=== PATIENT | female | born 1930 | race Caucasian/White ===

== ENCOUNTER 2016-10-28 11:06 | Inpatient (IN) | payer MEDICARE ==
[~2016-10-28] VITALS: Ht 174 cm; Wt 71.0 kg
[~2016-10-28 11:06] MED LIST: CITA10TA8 PO; CITA40TA12 PO; CLON0.1T PO; DILT120C PO; DILT30TA33 PO; HYDR12.53 PO; HYDR25TA6 PO; LOVA40TA2 PO; OXYC-302 PO; PRAV20TA2 PO; PRAV40TA2 PO
[2016-10-28] MEDS ORDERED: DILTIAZEM 125 MG in DEXTROSE 5% 100 ML IV SCH (11:27)
[2016-10-28] MEDS ORDERED: LOSA50TA6 PO (11:27)
[2016-10-28] MEDS ORDERED: CITA20TA9 PO (11:27)
[2016-10-28] MEDS ORDERED: SODIUM CHLORIDE 0.9% 1,000 ML IV ONE (11:27)
[2016-10-28] MEDS ORDERED: MAGNESIUM SULFATE 1 GM in SODIUM CHLORIDE 0.9% 50 ML IVPB ONE (11:30)
[2016-10-28] MEDS ORDERED: DILTIAZEM 5 MG/ML, 5ML IV ONE (11:30)
[2016-10-28] MEDS ORDERED: SODIUM CHLORIDE 0.9% 1,000ML IVBOLUS ONE (11:30)
[2016-10-28] MEDS ORDERED: ASPIRIN 81 MG TABLET CHEW PO ONE (11:30)
[2016-10-28] MEDS ORDERED: ASPIRIN 81 MG TABLET CHEW ONE (11:41)
[2016-10-28] MEDS ORDERED: DILTIAZEM 5 MG/ML, 5ML ONE (11:41)
[2016-10-28 11:54] LABS: HEMATOCRIT 42.9 % (34.6-47.8); HEMOGLOBIN 14.4 g/dL (11.7-16.4); WHITE BLOOD COUNT 6.2 x10^3/uL (3.4-10)
[2016-10-28 12:03] LABS: ASPARTATE AMINO TRANSFERASE 23 U/L (15-37); BLOOD UREA NITROGEN 15 mg/dL (7-18)
[2016-10-28 12:10] LABS: IS PT STATUS REG ER OR PRE ER? YES
[2016-10-28] MEDS ORDERED: POTASSIUM CHLORIDE 20 MEQ TAB.ER.PRT PO ONE (14:30)
[2016-10-28] MEDS ORDERED: ONDANSETRON 2MG/ML, 2ML IVPush PRN (14:30)
[2016-10-28] MEDS ORDERED: ONDANSETRON ODT 4 MG PO PRN (14:30)
[2016-10-28] MEDS ORDERED: ACETAMINOPHEN 325 MG TABLET PO PRN (14:30)
[2016-10-28] MEDS ORDERED: DOCUSATE 100 MG CAPSULE PO PRN (14:30)
[2016-10-28] MEDS ORDERED: BISACODYL 10 MG SUPP PR PRN (14:30)
[2016-10-28 14:36] VITALS: BP 115/80
[2016-10-28] MEDS ORDERED: HEPARIN 5,000 UNITS/ML, 1ML IV PRN (15:00)
[2016-10-28] MEDS ORDERED: HEPARIN 5,000 UNITS/ML, 1ML IV ONE (15:00)
[2016-10-28] MEDS ORDERED: HEPARIN 25,000 UNITS/500ML PMX 500 ML IV PRN (15:00)
[2016-10-28] MEDS ORDERED: DILTIAZEM 125 MG in SODIUM CHLORIDE 0.9% 100 ML IV SCH (15:30)
[2016-10-28 18:10] LABS: IS PT STATUS REG ER OR PRE ER? YES
[2016-10-28 18:41] VITALS: BP 112/76
[2016-10-28] MEDS: METOPROLOL TARTRATE 25 MG TABLET PO SCH (18:43)
[2016-10-28 21:30] VITALS: BP 86/56
[2016-10-29 00:37] VITALS: BP 120/75
[2016-10-29 00:51] LABS: IS PT STATUS REG ER OR PRE ER? NO
[2016-10-29] MEDS: METOPROLOL TARTRATE 25 MG TABLET PO SCH ×2 (05:47→16:58)
[2016-10-29] MEDS: ASPIRIN 81 MG TABLET EC PO SCH (05:47)
[2016-10-29 06:28] LABS: BLOOD UREA NITROGEN 15 mg/dL (7-18)
[2016-10-29 07:56] VITALS: BP 117/76
[2016-10-29] MEDS: CITALOPRAM 20 MG TABLET PO SCH (08:44)
[2016-10-29 13:00] VITALS: BP 168/91
[2016-10-29] MEDS ORDERED: FENTANYL PF 100 MCG/2ML ONE (14:05)
[2016-10-29] MEDS ORDERED: LIDOCAINE 2%, 20ML ONE (14:05)
[2016-10-29] MEDS ORDERED: MIDAZOLAM 1 MG/ML, 5ML ONE (14:05)
[2016-10-29] MEDS ORDERED: VANCOMYCIN PMX 1GM/200ML 200 ML ONE (14:05)
[2016-10-29] MEDS ORDERED: VANCOMYCIN 500 MG ONE (14:05)
[2016-10-29] MEDS ORDERED: HYDROcodone/APAP 5/325 TABLET PO PRN (15:30)
[2016-10-29] MEDS ORDERED: DILTIAZEM 125 MG in SODIUM CHLORIDE 0.9% 100 ML IV SCH (15:30)
[2016-10-29 19:41] VITALS: BP 115/77
[2016-10-29] MEDS: SODIUM CHLORIDE FLUSH 10ML SYR IVF SCH (20:49)
[2016-10-30 02:56] VITALS: BP 146/88
[2016-10-30] MEDS: ASPIRIN 81 MG TABLET EC PO SCH (05:37)
[2016-10-30] MEDS: METOPROLOL TARTRATE 25 MG TABLET PO SCH ×2 (05:37→16:30)
[2016-10-30 06:30] VITALS: BP 143/82
[2016-10-30] MEDS: CITALOPRAM 20 MG TABLET PO SCH (07:50)
[2016-10-30] MEDS: SODIUM CHLORIDE FLUSH 10ML SYR IVF SCH ×2 (07:53→19:24)
[2016-10-30 15:26] VITALS: BP 162/85
[2016-10-30 19:12] VITALS: BP 150/92
[2016-10-31 02:46] VITALS: BP 159/98
[2016-10-31 05:06] LABS: HEMATOCRIT 42.2 % (34.6-47.8); HEMOGLOBIN 14.1 g/dL (11.7-16.4); WHITE BLOOD COUNT 8.5 x10^3/uL (3.4-10)
[2016-10-31 05:33] LABS: BLOOD UREA NITROGEN 9 mg/dL (7-18)
[2016-10-31] MEDS: ASPIRIN 81 MG TABLET EC PO SCH (06:32)
[2016-10-31] MEDS: METOPROLOL TARTRATE 25 MG TABLET PO SCH (06:32)
[2016-10-31 07:23] VITALS: BP 145/95
[2016-10-31] MEDS: CITALOPRAM 20 MG TABLET PO SCH (08:28)
[2016-10-31] MEDS: SODIUM CHLORIDE FLUSH 10ML SYR IVF SCH (08:28)
[2016-10-31] MEDS ORDERED: METO25TA35 PO (10:13)
[2016-10-31] MEDS ORDERED: ASPI-621 PO (10:13)
[2016-10-31] MEDS ORDERED: HYDR25TA6 PO (10:30)
[2016-10-31] MEDS ORDERED: POTASSIUM CHLORIDE 20 MEQ TAB.ER.PRT PO ONE (10:30)
== END 2016-10-31 11:36 | disposition home or self-care (01) | DRG 243 ==
LOC: ED 11:28 → EDIP 13:04 → 5SO 14:18 → DCLOUNGE 10-31 11:10
PROVIDERS: ADMIT Internal Medicine; ATTEND Internal Medicine
PROC: 0JH606Z Insertion of Pacemaker, Dual Chamber into Chest Subcutaneous Tissue and Fascia, Open Approach (ICD-10-PCS; principal; 2016-10-29)
PROC: 02H63JZ Insertion of Pacemaker Lead into Right Atrium, Percutaneous Approach (ICD-10-PCS; 2016-10-29)
PROC: 02HK3JZ Insertion of Pacemaker Lead into Right Ventricle, Percutaneous Approach (ICD-10-PCS; 2016-10-29)
DX: I49.5 Sick sinus syndrome (principal); D68.69 Other thrombophilia; J93.83 Other pneumothorax; I48.0 Paroxysmal atrial fibrillation; I10 Essential (primary) hypertension; E87.6 Hypokalemia; E78.5 Hyperlipidemia, unspecified; F32.9 Major depressive disorder, single episode, unspecified; Z66 Do not resuscitate; Z81.8 Family history of other mental and behavioral disorders; Z82.3 Family history of stroke; Z87.11 Personal history of peptic ulcer disease; Z87.891 Personal history of nicotine dependence; Z88.0 Allergy status to penicillin; Z98.3 Post therapeutic collapse of lung status
CPT/HCPCS: 33208; 36005; 36415; 71010; 80048; 80053; 80061; 83735; 83880; 84439; 84443; 84484; 85025; 85520; 85610; 93005; 93306; 96361; 96365; 96368; 96375; 99156; 99157; C1779; C1785; C1892; J1644; J2250; J3010; J3370; J3475; J3490; J7030; Q9967